=== PATIENT | female | born 2000 | race Caucasian/White ===

== ENCOUNTER 2023-10-30 21:02 | Observation (INO) | payer OTHER ==
[2023-10-30] MEDS ORDERED: Ativan 2 MG/1 ML VIAL IV ONE (21:31)
[2023-10-30 21:39] LABS: Absolute Neutrophil Ct (ANC) 2.65 x10^3/uL (1.4-6.9); BASOPHIL % 0.4 % (0.0-0.4); Basophil (Absolute #) 0.02 x10^3/uL (0-0.4); Eosinophil % 0.7 % (0.00-5.0); Eosinophil (Absolute #) 0.04 x10^3/uL (0-0.5); Hematocrit 43.9 % (35-47); Hemoglobin 14.7 g/dL (12.0-16.0); IMMATURE GRAN # 0.02 x10^3u/L (0.00-0.03); IMMATURE GRAN % 0.4 % (0.00-0.4); Lymphocyte (Absolute #) 2.37 x10^3/uL (1.0-4.6); Lymphocytes % 43.7 % (24.0-44.0); Mean Cell Volume 89.6 fL (78-100); Mean Corpuscular Hgb Concent. 33.5 g/dL (32-36); Monocyte (Absolute #) 0.32 x10^3/uL (0.0-1.3); Monocytes % 5.9 % (0.0-12.0); Neutrophil % 48.9 % (36.0-66.0); Platelet Count 357 x10^3/uL (150-450); Red Cell Distribution Width 12.9 % (11.5-14.0); White Blood Count 5.4 x10^3/uL (4.0-10.5)
[2023-10-30] MEDS ORDERED: Ativan 2 MG/1 ML VIAL ONE (21:45)
[2023-10-30 21:49] LABS: HCG SERUM TEST NEGATIVE (NEGATIVE)
[2023-10-30 21:50] LABS: ACETAMINOPHEN < 10 ug/ml (10-30); ALBUMIN 4.7 g/dL (3.5-5.0); ALKALINE PHOSPHATASE 60 U/L (38-126); ANION GAP 17.4 MEQ/L (5-15); BLOOD UREA NITROGEN 3 mg/dL (7-17); CHLORIDE 109 mmol/L (98-107); Calcium 9.3 mg/dL (8.4-10.2); Carbon Dioxide 23 mmol/L (22-30); Creatinine 1 0.61 mg/dL (0.52-1.04); Glucose 109 mg/dL (74-106); Potassium 3.7 mmol/L (3.5-5.1); SALICYLATE < 1.0 mg/dL (2-20); SGOT/AST 37 U/L (14-36); SGPT/ALT 63 U/L (0-35); SODIUM 146 mmol/L (137-145); Total Protein 8.1 g/dL (6.3-8.2)
[2023-10-30 21:59] LABS: ETHYL ALCOHOL 332 mg/dL (0-10)
[2023-10-30 22:14] LABS: INFLUENZA A NEGATIVE (NEGATIVE); INFLUENZA B NEGATIVE (NEGATIVE); RESPIRATORY SYNCTIAL VIRUS NEGATIVE (NEGATIVE); SARS-CoV-2 Xpert Express NEGATIVE (NEGATIVE)
[2023-10-30] MEDS ORDERED: Nicoderm CQ 21 MG TOP ONE (22:25)
[2023-10-30] MEDS ORDERED: Sodium Chloride 0.9% 1000 ML 1,000 ML IV STA (22:41)
[2023-10-30] MEDS ORDERED: Sodium Chloride 0.9% 1000 ML 1,000 ML ONE (22:43)
--- NOTE | 2023-10-30 23:18 | ERPHSYRPT ---
- History of Present Illness Time Seen by Provider: 10/30/23 21:10 Source: patient Exam Limitations: no limitations Patient Subjective Stated Complaint: pt states "I just want to bleed to and ." Triage Nursing Assessment: pt came into the er via wheelchair; pt is axo; c/o SI; pt is uncooperative, restless; pt has bouts of tearfulness and laughter; multiple superficial lacerations to rt forearm; ETOH; no respiratory distress present; hypertensive; tachycardic Physician History: 23 years old female with history of hypertension, alcohol abuse presented in the ER with chief complaint of suicidal ideations. Patient apparently has been drinking almost every day, had couple of tall beers prior to arrival after she did superficial cuts on the right forearm. Does have history of suicidal ideations in the past and have attempted with heavy drinking and is having the same thoughts now. Denies any other substance use. Denies any homicidal ideations. Patient is awake alert, oriented with no signs of distress with stable vitals. Allergies/Adverse Reactions: No Known Drug Allergies Allergy (Unverified 10/30/23 21:07) Home Medications: Lisinopril 10 mg [Zestril 10 MG] 10 mg PO DAILY 10/30/23 [History] Metoprolol Tartrate 25 mg [Lopressor 25MG Tab] 25 mg PO BID 10/30/23 [History] Naltrexone HCl 50 mg PO DAILY 10/30/23 [History] hydrOXYzine HCL [Hydroxyzine HCl] 10 mg PO BID 10/30/23 [History] Hx Tetanus, Diphtheria Vaccination/Date Given: No (unknown) Hx Influenza Vaccination/Date Given: (unknown) Hx Pneumococcal Vaccination/Date Given: (unknown) Immunizations Up to Date: (unknown) Travel Risk - International Travel Have you traveled outside of the country in past 3 weeks: No - Coronavirus Screening Are you exhibiting any of the following symptoms?: No Close contact with a COVID-19 positive Pt in past 14-21 Days: No - Vaccine Status Have you recieved a Covid-19 vaccination: No - Past Medical History Pertinent Past Medical History: Yes Cardiac History: Hypertension Other Medical History: alcoholism - Past Surgical History Past Surgical History: No - Social History Smoking Status: Smoker, status unknown Exposure to second hand smoke: No Drug Use: marijuana Patient Lives Alone: No - Female History Hx Now: No - Review of Systems Constitutional: No Symptoms Eyes: No Symptoms Ears, Nose, & Throat: No Symptoms Respiratory: No Symptoms Cardiac: No Symptoms Abdominal/Gastrointestinal: No Symptoms Genitourinary Symptoms: No Symptoms Musculoskeletal: No Symptoms Skin: No Symptoms Neurological: No Symptoms Psychological: Alcohol Abuse, Depression Endocrine: No Symptoms Hematologic/Lymphatic: No Symptoms - Nursing Vital Signs Nursing Vital Signs: Initial Vital Signs Temperature 97.9 F 10/30/23 21:03 Pulse Rate 112 H 10/30/23 21:03 Respiratory Rate 24 10/30/23 21:03 Blood Pressure 141/103 10/30/23 21:03 O2 Sat by Pulse Oximetry 97 10/30/23 21:03 Pain Scale Pain Intensity 0 - Physical Exam General Appearance: no apparent distress, alert Eyes, Ears, Nose, Throat Exam: normal ENT inspection Neck Exam: normal inspection, supple, full range of motion Respiratory Exam: normal breath sounds, lungs clear Cardiovascular Exam: normal heart sounds, tachycardia Gastrointestinal/Abdominal Exam: soft, normal bowel sounds, No tenderness Extremities Exam: normal range of motion Neurological Exam: alert, herb doctor II-XII nml as tested, oriented x 3, No normal mood/affect Appearance: No appropriate insight Behavior/Eye Contact/Speech: alert & cooperative Thoughts/Hallucinations: no apparent hallucination, No normal thought pattern Skin Exam: normal color SpO2 Interpretation: normal SpO2: 98 O2 Delivery: Room Air - Course EKG Interpreted by Me: RATE ([id number]), Sinus Rhythm, NORMAL AXIS, NORMAL INTERVALS Ordered Tests: Active Orders 24 hr Category Date Time Status ACETAMINOPHEN Stat Lab 10/30/23 21:20 Completed CBC W DIFF Stat Lab 10/30/23 21:20 Completed CMP Stat Lab 10/30/23 21:20 Completed ETHYL ALCOHOL Stat Lab 10/30/23 21:20 Completed HCG QUALITATIVE, SERUM Stat Lab 10/30/23 21:20 Completed SALICYLATE Stat Lab 10/30/23 21:20 Completed UA W/RFX UR CULTURE Stat Lab 10/30/23 21:11 Ordered Urine Triage Profile Stat Lab 10/30/23 21:11 Ordered Transfer Order Routine Transfer 10/30/23 Ordered Medication Summary Generic Name Dose Route Start Last Admin Trade Name Freq PRN Reason Stop Dose Admin Sodium Chloride 1,000 mls @ 999 mls/hr 10/30/23 22:41 10/30/23 22:45 Sodium Chloride 0.9% 1000 Ml IV 10/30/23 23:41 999 mls/hr .Q1H1M STA Administration Discontinued Medications Generic Name Dose Route Start Last Admin Trade Name Pino PRN Reason Stop Dose Admin Sodium Chloride Confirm 10/30/23 22:43 Sodium Chloride 0.9% 1000 Ml Administered 10/30/23 22:44 Dose 1,000 mls @ ud .ROUTE .STK-MED ONE Lorazepam 1 mg 10/30/23 21:31 10/30/23 21:46 Lorazepam 2 Mg/1 Ml 2 Mg Vial IV 10/30/23 21:32 1 mg STAT ONE Administration Lorazepam Confirm 10/30/23 21:45 Lorazepam 2 Mg/1 Ml 2 Mg Vial Administered 10/30/23 21:46 Dose 2 mg .ROUTE .STK-MED ONE Nicotine 21 mg 10/30/23 22:25 10/30/23 22:30 Nicotine 21 Mg/Patch Patch TOP 10/30/23 22:26 21 mg STAT ONE Administration Lab/Rad Data: Laboratory Result Diagrams 10/30/23 21:20 10/30/23 21:20 Laboratory Results 10/30/23 10/30/23 10/30/23 Range/Units 21:20 21:20 21:20 WBC (4.0-10.5) x10^3/uL RBC (4.1-5.4) x10^6/uL Hgb (12.0-16.0) g/dL Hct (35-47) % MCV (78-100) fL MCH (26-32) pg MCHC (32-36) g/dL RDW (11.5-14.0) % Plt Count (150-450) x10^3/uL MPV (7.5-11.0) fL Gran % (36.0-66.0) % Immature Gran % (Auto) (0.00-0.4) % Nucleat RBC Rel Count (0.00-0.1) % Eos # (Auto) (0-0.5) x10^3/uL Immature Gran # (Auto) (0.00-0.03) x10^3u/L Absolute Lymphs (auto) (1.0-4.6) x10^3/uL Absolute Monos (auto) (0.0-1.3) x10^3/uL Absolute Nucleated RBC (0.00-0.01) x10^3u/L Lymphocytes % (24.0-44.0) % Monocytes % (0.0-12.0) % Eosinophils % (0.00-5.0) % Basophils % (0.0-0.4) % Absolute Granulocytes (1.4-6.9) x10^3/uL Basophils # (0-0.4) x10^3/uL Sodium 146 H (137-145) mmol/L Potassium 3.7 (3.5-5.1) mmol/L Chloride 109 H (98-107) mmol/L Carbon Dioxide 23 (22-30) mmol/L Anion Gap 17.4 H (5-15) MEQ/L BUN 3 L (7-17) mg/dL Creatinine 0.61 (0.52-1.04) mg/dL Estimated GFR 128.0 ML/MIN Glucose 109 H (74-106) mg/dL Calcium 9.3 (8.4-10.2) mg/dL Total Bilirubin 0.70 (0.2-1.3) mg/dL AST 37 H (14-36) U/L ALT 63 H (0-35) U/L Alkaline Phosphatase 60 (38-126) U/L Serum Total Protein 8.1 (6.3-8.2) g/dL Albumin 4.7 (3.5-5.0) g/dL Serum HCG, Qual NEGATIVE (NEGATIVE) Salicylates < 1.0 L (2-20) mg/dL Acetaminophen < 10 L (10-30) ug/ml Ethyl Alcohol 332 H (0-10) mg/dL Influenza Type A Ag NEGATIVE (NEGATIVE) Influenza Type B Ag NEGATIVE (NEGATIVE) RSV (PCR) NEGATIVE (NEGATIVE) SARS-CoV-2 (PCR) NEGATIVE (NEGATIVE) 10/30/23 Range/Units 21:20 WBC 5.4 (4.0-10.5) x10^3/uL RBC 4.90 (4.1-5.4) x10^6/uL Hgb 14.7 (12.0-16.0) g/dL Hct 43.9 (35-47) % MCV 89.6 (78-100) fL MCH 30.0 (26-32) pg MCHC 33.5 (32-36) g/dL RDW 12.9 (11.5-14.0) % Plt Count 357 (150-450) x10^3/uL MPV 9.0 (7.5-11.0) fL Gran % 48.9 (36.0-66.0) % Immature Gran % (Auto) 0.4 (0.00-0.4) % Nucleat RBC Rel Count 0.0 (0.00-0.1) % Eos # (Auto) 0.04 (0-0.5) x10^3/uL Immature Gran # (Auto) 0.02 (0.00-0.03) x10^3u/L Absolute Lymphs (auto) 2.37 (1.0-4.6) x10^3/uL Absolute Monos (auto) 0.32 (0.0-1.3) x10^3/uL Absolute Nucleated RBC 0.00 (0.00-0.01) x10^3u/L Lymphocytes % 43.7 (24.0-44.0) % Monocytes % 5.9 (0.0-12.0) % Eosinophils % 0.7 (0.00-5.0) % Basophils % 0.4 (0.0-0.4) % Absolute Granulocytes 2.65 (1.4-6.9) x10^3/uL Basophils # 0.02 (0-0.4) x10^3/uL Sodium (137-145) mmol/L Potassium (3.5-5.1) mmol/L Chloride (98-107) mmol/L Carbon Dioxide (22-30) mmol/L Anion Gap (5-15) MEQ/L BUN (7-17) mg/dL Creatinine (0.52-1.04) mg/dL Estimated GFR ML/MIN Glucose (74-106) mg/dL Calcium (8.4-10.2) mg/dL Total Bilirubin (0.2-1.3) mg/dL AST (14-36) U/L ALT (0-35) U/L Alkaline Phosphatase (38-126) U/L Serum Total Protein (6.3-8.2) g/dL Albumin (3.5-5.0) g/dL Serum HCG, Qual (NEGATIVE) Salicylates (2-20) mg/dL Acetaminophen (10-30) ug/ml Ethyl Alcohol (0-10) mg/dL Influenza Type A Ag (NEGATIVE) Influenza Type B Ag (NEGATIVE) RSV (PCR) (NEGATIVE) SARS-CoV-2 (PCR) (NEGATIVE) - Progress Progress: unchanged, re-examined Progress Note: 10/30/23 23:24 23 years old female with history of hypertension, alcohol abuse presented in the ER with chief complaint of suicidal ideations. Patient apparently has been drinking almost every day, had couple of tall beers prior to arrival after she did superficial cuts on the right forearm. Does have history of suicidal ideations in the past and have attempted with heavy drinking and is having the same thoughts now. Denies any other substance use. Denies any homicidal ideations. Patient is awake alert, oriented with no signs of distress with stable vitals. She is very anxious, given Ativan for symptomatic relief and started on fluids. Workup showed normal white count, chemistry for Ryles showed mildly elevated sodium of 146 and anion gap of 17. Patient has a blood alcohol of 332. EKG is normal sinus rhythm with no acute ischemic changes. She has a stable vitals. Patient cannot be medically clear for psychiatric evaluation. Discussed with Dr. Lunsford, reviewed history, workup and agreed with admission and once patient is sober enough can have psych eval. Discussed with : Zen Counseled pt/family regarding: lab results, diagnosis, need for follow-up Medical Desision Making - Independent Historian Additional History obtained from: Family - Discussion of managment Care discussed with:: hospitalist Reviewed:: Test results Agreed on:: Treatment plan Will see patient: in hospital - Diagnostic Testing Diagnostic test were ordered, analyzed, and reviewed by me: Yes - Risk of complications The pt has a high risk of morbidity or mortality based on: Decision regarding hospitilization or escalation of hosp level of care - Departure Departure Disposition: Observation Clinical Impression: Alcohol intoxication, Suicidal ideations Condition: Stable Critical Care Time: No Referrals: NAKTIA RIVERO, TK [Primary Care Provider] - Follow up/PCP as directed
[2023-10-31 00:25] LABS: Appearance Clear (Clear); Bacteria None Seen /HPF (None Seen); Bilirubin Negative (Negative); Blood Negative (Negative); Epithelial Cells Rare /HPF (None Seen); Glucose, Urine Negative (Negative); Hyaline Casts NONE SEEN /LPF (0-2); Ketones Negative (Negative); Leukocyte Esterase Negative (Negative); Nitrite Negative (Negative); Ph 7.5 (4.6-8.0); Protein,Urine Dip Negative (Negative); RBC 0-2 /HPF (0-5); Specific Gravity <=1.005 (1.005-1.030); WBC 0-2 /HPF (0-5)
[2023-10-31 00:30] LABS: ADD URINE CULTURE? NO (NO)
[2023-10-31 00:56] LABS: Amphetamine,Urine NEGATIVE (NEGATIVE); Barbiturate,Urine NEGATIVE (NEGATIVE); Benzodiazepine,Urine NEGATIVE (NEGATIVE); Methadone,Urine NEGATIVE (NEGATIVE); Opiate,Urine NEGATIVE (NEGATIVE); PCP,Urine NEGATIVE (NEGATIVE); THC,Urine NEGATIVE (NEGATIVE)
[2023-10-31 01:06] LABS: Cocaine,Urine NEGATIVE (NEGATIVE)
--- NOTE | 2023-10-31 03:18 | PCM.HP ---
History of Present Illness - Chief Complaint Chief Complaint: Alcohol intoxication Date: 10/31/23 History of Present Illness: Ms. Galvez is a 23 year-old female with HTN, EtOH abuse and dependence, and prior suicidal ideations who presents with agitation, EtOH intoxication, and cutting to cause self injury. She has a long standing history of alcohol abuse, and today she started to cut herself on her harms due to having active suicidal ideations. Laboratory data revealed hypernatremia, increased LFTs, and a positive blood alcohol level. On my examination, she is resting comfortably but less agitated, denying any current fevers, chills, nausea, vomiting, diarrhea, syncope, presyncope, visual changes, orthopnea, PND, odynophagia, dysphagia, chest pain, shortness of breath, belly pain, dysuria, hematuria, melena, hematochezia, or neurological changes. All other systems were reviewed and were negative. She still admits to suicidal ideations but denies any homicidal ideations - Review of Systems Constitutional: No Fever, No Chills Eyes: No Symptoms Ears, Nose, & Throat: No Symptoms Respiratory: No Cough, No Short Of Breath Cardiac: No Chest Pain, No Edema, No Syncope Abdominal/Gastrointestinal: No Abdominal Pain, No Nausea, No Vomiting, No Diarrhea Genitourinary Symptoms: No Dysuria Musculoskeletal: No Back Pain, No Neck Pain Skin: No Rash Neurological: No Dizziness, No Focal Weakness, No Sensory Changes Psychological: Alcohol Abuse, Suicidal Ideations Endocrine: No Symptoms Hematologic/Lymphatic: No Symptoms Immunological/Allergic: No Symptoms Medications & Allergies Home Medications: Home Medication List Lisinopril 10 mg [Zestril 10 MG] 10 mg PO DAILY 10/30/23 [History Confirmed 10/30/23] Metoprolol Tartrate 25 mg [Lopressor 25MG Tab] 25 mg PO BID 10/30/23 [History Confirmed 10/30/23] Naltrexone HCl 50 mg PO DAILY 10/30/23 [History Confirmed 10/30/23] hydrOXYzine HCL [Hydroxyzine HCl] 10 mg PO BID PRN 10/30/23 [History Confirmed 10/30/23] Allergies/Adverse Reactions: Allergies Allergy/AdvReac Type Severity Reaction Status Date / Time No Known Drug Allergies Allergy Verified 10/30/23 23:46 - Past Medical History Past Medical History: Yes Neurological History: No Pertinent History ENT History: No Pertinent History Cardiac History: Hypertension Respiratory History: No Pertinent History Endocrine Medical History: No Pertinent History Musculoskelatal History: No Pertinent History GI Medical History: No Pertinent History History: No Pertinent History Pyscho-Social History: Anxiety, Depression, Other Reproductive Disorders: No Pertinent History Comment: alcoholism - Female History Hx Last Menstrual Period: 10/13/23 Are you now?: No - Past Surgical History Past Surgical History: No - Social History Smoking Status: Former smoker How long have you smoked: 4 years Exposure to second hand smoke: No Alcohol: Heavy, Daily Drug Use: marijuana - Physical Exam Vital Signs: Vital Signs - 24 hr Temp Pulse Resp BP BP Pulse Ox 10/31/23 01:36 85 19 144/85 10/31/23 00:35 99 10/31/23 00:09 97.9 F 82 16 114/78 98 10/31/23 00:00 87 19 144/85 10/30/23 23:35 98 10/30/23 23:03 82 114/78 98 10/30/23 23:00 84 14 114/78 98 10/30/23 22:46 76 14 80/48 97 10/30/23 22:39 89 80/48 98 10/30/23 22:38 96 10/30/23 22:37 97 10/30/23 21:03 97.9 F 112 H 24 141/103 97 General Appearance: no apparent distress, alert Neurologic Exam: alert, oriented x 3, cooperative, normal mood/affect, nml cerebellar function, nml station & gait, sensation nml, No motor deficits Eye Exam: PERRL/EOMI, eyes nml inspection Ears, Nose, Throat Exam: normal ENT inspection, TMs normal, pharynx normal, moist mucous membranes Neck Exam: normal inspection, non-tender, supple, full range of motion Respiratory Exam: normal breath sounds, lungs clear, No respiratory distress Cardiovascular Exam: regular rate/rhythm, normal heart sounds, normal peripheral pulses Gastrointestinal/Abdomen Exam: soft, normal bowel sounds, No tenderness, No mass Back Exam: normal inspection, normal range of motion, No CVA tenderness, No vertebral tenderness Extremity Exam: other (CUTS ON FOREARMS) Skin Exam: normal color, warm, dry, No rash Lymphatic Exam: No adenopathy Results - Labs Lab/Micro Results: Lab Results-Last 24 Hours 10/30/23 10/30/23 10/30/23 Range/Units 21:20 21:20 21:20 WBC 5.4 (4.0-10.5) x10^3/uL RBC 4.90 (4.1-5.4) x10^6/uL Hgb 14.7 (12.0-16.0) g/dL Hct 43.9 (35-47) % MCV 89.6 (78-100) fL MCH 30.0 (26-32) pg MCHC 33.5 (32-36) g/dL RDW 12.9 (11.5-14.0) % Plt Count 357 (150-450) x10^3/uL MPV 9.0 (7.5-11.0) fL Gran % 48.9 (36.0-66.0) % Immature Gran % (Auto) 0.4 (0.00-0.4) % Nucleat RBC Rel Count 0.0 (0.00-0.1) % Eos # (Auto) 0.04 (0-0.5) x10^3/uL Immature Gran # (Auto) 0.02 (0.00-0.03) x10^3u/L Absolute Lymphs (auto) 2.37 (1.0-4.6) x10^3/uL Absolute Monos (auto) 0.32 (0.0-1.3) x10^3/uL Absolute Nucleated RBC 0.00 (0.00-0.01) x10^3u/L Lymphocytes % 43.7 (24.0-44.0) % Monocytes % 5.9 (0.0-12.0) % Eosinophils % 0.7 (0.00-5.0) % Basophils % 0.4 (0.0-0.4) % Absolute Granulocytes 2.65 (1.4-6.9) x10^3/uL Basophils # 0.02 (0-0.4) x10^3/uL Sodium 146 H (137-145) mmol/L Potassium 3.7 (3.5-5.1) mmol/L Chloride 109 H (98-107) mmol/L Carbon Dioxide 23 (22-30) mmol/L Anion Gap 17.4 H (5-15) MEQ/L BUN 3 L (7-17) mg/dL Creatinine 0.61 (0.52-1.04) mg/dL Estimated GFR 128.0 ML/MIN Glucose 109 H (74-106) mg/dL Calcium 9.3 (8.4-10.2) mg/dL Total Bilirubin 0.70 (0.2-1.3) mg/dL AST 37 H (14-36) U/L ALT 63 H (0-35) U/L Alkaline Phosphatase 60 (38-126) U/L Serum Total Protein 8.1 (6.3-8.2) g/dL Albumin 4.7 (3.5-5.0) g/dL Serum HCG, Qual NEGATIVE (NEGATIVE) Urine Color (Yellow) Urine Appearance (Clear) Urine pH (4.6-8.0) Ur Specific [place] (1.005-1.030) Urine Protein (Negative) Urine Glucose (UA) (Negative) mg/dL Urine Ketones (Negative) Urine Blood (Negative) Urine Nitrite (Negative) Urine Bilirubin (Negative) Urine Urobilinogen (0.2) mg/dL Ur Leukocyte Esterase (Negative) U Hyaline Cast (Auto) (0-2) /LPF Urine Microscopic RBC (0-5) /HPF Urine Microscopic WBC (0-5) /HPF Ur Epithelial Cells (None Seen) /HPF Urine Bacteria (None Seen) /HPF Urine Culture Reflexed (NO) Salicylates < 1.0 L (2-20) mg/dL Urine Opiates Level (NEGATIVE) Ur Methadone (NEGATIVE) Acetaminophen < 10 L (10-30) ug/ml Urine Barbiturates (NEGATIVE) Ur Phencyclidine (PCP) (NEGATIVE) Urine Amphetamine (NEGATIVE) U Benzodiazepine Level (NEGATIVE) Urine Cocaine (NEGATIVE) Urine Marijuana (THC) (NEGATIVE) Ethyl Alcohol 332 H (0-10) mg/dL Influenza Type A Ag (NEGATIVE) Influenza Type B Ag (NEGATIVE) RSV (PCR) (NEGATIVE) SARS-CoV-2 (PCR) (NEGATIVE) 10/30/23 10/31/23 10/31/23 Range/Units 21:20 00:01 00:01 WBC (4.0-10.5) x10^3/uL RBC (4.1-5.4) x10^6/uL Hgb (12.0-16.0) g/dL Hct (35-47) % MCV (78-100) fL MCH (26-32) pg MCHC (32-36) g/dL RDW (11.5-14.0) % Plt Count (150-450) x10^3/uL MPV (7.5-11.0) fL Gran % (36.0-66.0) % Immature Gran % (Auto) (0.00-0.4) % Nucleat RBC Rel Count (0.00-0.1) % Eos # (Auto) (0-0.5) x10^3/uL Immature Gran # (Auto) (0.00-0.03) x10^3u/L Absolute Lymphs (auto) (1.0-4.6) x10^3/uL Absolute Monos (auto) (0.0-1.3) x10^3/uL Absolute Nucleated RBC (0.00-0.01) x10^3u/L Lymphocytes % (24.0-44.0) % Monocytes % (0.0-12.0) % Eosinophils % (0.00-5.0) % Basophils % (0.0-0.4) % Absolute Granulocytes (1.4-6.9) x10^3/uL Basophils # (0-0.4) x10^3/uL Sodium (137-145) mmol/L Potassium (3.5-5.1) mmol/L Chloride (98-107) mmol/L Carbon Dioxide (22-30) mmol/L Anion Gap (5-15) MEQ/L BUN (7-17) mg/dL Creatinine (0.52-1.04) mg/dL Estimated GFR ML/MIN Glucose (74-106) mg/dL Calcium (8.4-10.2) mg/dL Total Bilirubin (0.2-1.3) mg/dL AST (14-36) U/L ALT (0-35) U/L Alkaline Phosphatase (38-126) U/L Serum Total Protein (6.3-8.2) g/dL Albumin (3.5-5.0) g/dL Serum HCG, Qual (NEGATIVE) Urine Color Yellow (Yellow) Urine Appearance Clear (Clear) Urine pH 7.5 (4.6-8.0) Ur Specific [place] <=1.005 (1.005-1.030) Urine Protein Negative (Negative) Urine Glucose (UA) Negative (Negative) mg/dL Urine Ketones Negative (Negative) Urine Blood Negative (Negative) Urine Nitrite Negative (Negative) Urine Bilirubin Negative (Negative) Urine Urobilinogen 1.0 A (0.2) mg/dL Ur Leukocyte Esterase Negative (Negative) U Hyaline Cast (Auto) NONE SEEN (0-2) /LPF Urine Microscopic RBC 0-2 (0-5) /HPF Urine Microscopic WBC 0-2 (0-5) /HPF Ur Epithelial Cells Rare (None Seen) /HPF Urine Bacteria None Seen (None Seen) /HPF Urine Culture Reflexed NO (NO) Salicylates (2-20) mg/dL Urine Opiates Level NEGATIVE (NEGATIVE) Ur Methadone NEGATIVE (NEGATIVE) Acetaminophen (10-30) ug/ml Urine Barbiturates NEGATIVE (NEGATIVE) Ur Phencyclidine (PCP) NEGATIVE (NEGATIVE) Urine Amphetamine NEGATIVE (NEGATIVE) U Benzodiazepine Level NEGATIVE (NEGATIVE) Urine Cocaine NEGATIVE (NEGATIVE) Urine Marijuana (THC) NEGATIVE (NEGATIVE) Ethyl Alcohol (0-10) mg/dL Influenza Type A Ag NEGATIVE (NEGATIVE) Influenza Type B Ag NEGATIVE (NEGATIVE) RSV (PCR) NEGATIVE (NEGATIVE) SARS-CoV-2 (PCR) NEGATIVE (NEGATIVE) Assessment/Plan (1) Suicidal ideations Current Visit: Yes Status: Acute Assessment & Plan: ASSESSMENT 1. Altered Mental Status and Agitation 2. Suicidal Ideations 3. Alcohol Intoxication 4. Transaminitis 5. Hypernatremia PLAN 1. Less agitated and cooperative 2. Gentle fluids 3. Mental health 4. Monitor LFTs- most likely from EtOH SCDs The entirety of this encounter was done via telemedicine Douglas Lunsford MD Pulmonary and Critical Care Medicine Code(s): R45.851 - SUICIDAL IDEATIONS Telemedicine Encounter - Telemedicine Encounter Telemedicine Encounter: The entirety of this encounter was performed via Telemedicine"
[2023-10-31] MEDS: Lactated Ringers 1,000 ML IV SCH ×2 (03:40→15:19)
[2023-10-31 04:59] LABS: Absolute Neutrophil Ct (ANC) 2.06 x10^3/uL (1.4-6.9); BASOPHIL % 0.5 % (0.0-0.4); Basophil (Absolute #) 0.02 x10^3/uL (0-0.4); Eosinophil % 0.9 % (0.00-5.0); Eosinophil (Absolute #) 0.04 x10^3/uL (0-0.5); Hematocrit 39.1 % (35-47); Hemoglobin 13.1 g/dL (12.0-16.0); IMMATURE GRAN # 0.02 x10^3u/L (0.00-0.03); IMMATURE GRAN % 0.5 % (0.00-0.4); Lymphocyte (Absolute #) 1.92 x10^3/uL (1.0-4.6); Lymphocytes % 44.4 % (24.0-44.0); Mean Cell Volume 89.9 fL (78-100); Mean Corpuscular Hemoglobin 30.1 pg (26-32); Mean Corpuscular Hgb Concent. 33.5 g/dL (32-36); Mean Platelet Volume 9.1 fL (7.5-11.0); Monocyte (Absolute #) 0.26 x10^3/uL (0.0-1.3); Neutrophil % 47.7 % (36.0-66.0); Platelet Count 316 x10^3/uL (150-450); Red Blood Count 4.35 x10^6/uL (4.1-5.4); Red Cell Distribution Width 12.8 % (11.5-14.0); White Blood Count 4.3 x10^3/uL (4.0-10.5)
[2023-10-31 05:26] LABS: ALBUMIN 4.1 g/dL (3.5-5.0); ALKALINE PHOSPHATASE 47 U/L (38-126); ANION GAP 15.6 MEQ/L (5-15); BLOOD UREA NITROGEN < 2 mg/dL (7-17); CHLORIDE 106 mmol/L (98-107); Calcium 8.5 mg/dL (8.4-10.2); Carbon Dioxide 21 mmol/L (22-30); EST GLOMERULAR FILTRATION RATE 134.2 ML/MIN; Glucose 90 mg/dL (74-106); Potassium 3.7 mmol/L (3.5-5.1); SGOT/AST 30 U/L (14-36); SGPT/ALT 53 U/L (0-35); SODIUM 138 mmol/L (137-145)
[2023-10-31] MEDS ORDERED: VALIUM 10 MG/2 ML SYRINGE IV PRN (08:05)
[2023-10-31] MEDS ORDERED: PHENERGAN 25 MG PO PRN (08:05)
[2023-10-31] MEDS ORDERED: Zestril 10 MG PO SCH (10:00)
[2023-10-31] MEDS ORDERED: Nicoderm CQ 21 MG TOP SCH (10:00)
[2023-10-31] MEDS ORDERED: VITAMIN B-1 100 MG PO SCH (10:00)
[2023-10-31] MEDS ORDERED: Lopressor 25MG Tab PO SCH (10:00)
[2023-10-31] MEDS ORDERED: FOLATE 1 MG PO SCH (10:00)
[2023-10-31] MEDS ORDERED: THERAGRAN MULTIVITAMIN PO SCH (10:00)
[2023-10-31 12:33] VITALS: RESP 17; TEMP 97.6; O2SAT 97
--- NOTE | 2023-10-31 16:59 | PCM.DS ---
Discharge Summary Date of Admission: 10/30/23 23:36 Date of Discharge: 10/31/23 Admitting Physician: TERRY ANGLIN MD Consults: Consults on Case 10/31/23 08:08 Consult,Huma [Psychiatric Consult] STAT Primary Care Provider: NAKITA RIVERO Allergies Allergies No Known Drug Allergies Allergy (Verified 10/30/23 23:46) Hospital Summary - Hospital Course Hospital Course: Ms. Galvez is a 23 year-old female with HTN, EtOH abuse and dependence, and prior suicidal ideations who presents with agitation, EtOH intoxication, and cutting to cause self injury. She has a long standing history of alcohol abuse, and today she started to cut herself on her harms due to having active suicidal ideations. Laboratory data revealed hypernatremia, increased LFTs, and a positive blood alcohol level. On my examination, she is resting comfortably but less agitated, denying any current fevers, chills, nausea, vomiting, diarrhea, syncope, presyncope, visual changes, orthopnea, PND, odynophagia, dysphagia, chest pain, shortness of breath, belly pain, dysuria, hematuria, melena, hematochezia, or neurological changes. All other systems were reviewed and were negative. She still admits to suicidal ideations but denies any homicidal ideations. Alcohol level is now within normal limits. She is stable and ready for tx for IP psych. She is ready and willing to go. - Vitals & Intake/Output Vital Signs: Vital Signs Temperature 97.6 F 10/31/23 12:16 Pulse Rate 63 10/31/23 12:20 Respiratory Rate 17 10/31/23 12:20 Blood Pressure 147/93 10/31/23 12:20 O2 Sat by Pulse Oximetry 97 10/31/23 12:16 Intake & Output: Intake & Output 10/29/23 10/30/23 10/31/23 11/01/23 11:59 11:59 11:59 11:59 Intake Total 200 Output Total 400 Balance -200 Weight 70.7 kg - Lab Result Diagrams: 10/31/23 04:24 10/31/23 04:24 Lab Results-Last 24 Hrs: Lab Results-Last 24 Hours 10/30/23 10/30/23 10/30/23 Range/Units 21:20 21:20 21:20 WBC 5.4 (4.0-10.5) x10^3/uL RBC 4.90 (4.1-5.4) x10^6/uL Hgb 14.7 (12.0-16.0) g/dL Hct 43.9 (35-47) % MCV 89.6 (78-100) fL MCH 30.0 (26-32) pg MCHC 33.5 (32-36) g/dL RDW 12.9 (11.5-14.0) % Plt Count 357 (150-450) x10^3/uL MPV 9.0 (7.5-11.0) fL Gran % 48.9 (36.0-66.0) % Immature Gran % (Auto) 0.4 (0.00-0.4) % Nucleat RBC Rel Count 0.0 (0.00-0.1) % Eos # (Auto) 0.04 (0-0.5) x10^3/uL Immature Gran # (Auto) 0.02 (0.00-0.03) x10^3u/L Absolute Lymphs (auto) 2.37 (1.0-4.6) x10^3/uL Absolute Monos (auto) 0.32 (0.0-1.3) x10^3/uL Absolute Nucleated RBC 0.00 (0.00-0.01) x10^3u/L Lymphocytes % 43.7 (24.0-44.0) % Monocytes % 5.9 (0.0-12.0) % Eosinophils % 0.7 (0.00-5.0) % Basophils % 0.4 (0.0-0.4) % Absolute Granulocytes 2.65 (1.4-6.9) x10^3/uL Basophils # 0.02 (0-0.4) x10^3/uL Sodium 146 H (137-145) mmol/L Potassium 3.7 (3.5-5.1) mmol/L Chloride 109 H (98-107) mmol/L Carbon Dioxide 23 (22-30) mmol/L Anion Gap 17.4 H (5-15) MEQ/L BUN 3 L (7-17) mg/dL Creatinine 0.61 (0.52-1.04) mg/dL Estimated GFR 128.0 ML/MIN Glucose 109 H (74-106) mg/dL Calcium 9.3 (8.4-10.2) mg/dL Magnesium (1.6-2.3) mg/dL Total Bilirubin 0.70 (0.2-1.3) mg/dL AST 37 H (14-36) U/L ALT 63 H (0-35) U/L Alkaline Phosphatase 60 (38-126) U/L Serum Total Protein 8.1 (6.3-8.2) g/dL Albumin 4.7 (3.5-5.0) g/dL Serum HCG, Qual NEGATIVE (NEGATIVE) Urine Color (Yellow) Urine Appearance (Clear) Urine pH (4.6-8.0) Ur Specific [place] (1.005-1.030) Urine Protein (Negative) Urine Glucose (UA) (Negative) mg/dL Urine Ketones (Negative) Urine Blood (Negative) Urine Nitrite (Negative) Urine Bilirubin (Negative) Urine Urobilinogen (0.2) mg/dL Ur Leukocyte Esterase (Negative) U Hyaline Cast (Auto) (0-2) /LPF Urine Microscopic RBC (0-5) /HPF Urine Microscopic WBC (0-5) /HPF Ur Epithelial Cells (None Seen) /HPF Urine Bacteria (None Seen) /HPF Urine Culture Reflexed (NO) Salicylates < 1.0 L (2-20) mg/dL Urine Opiates Level (NEGATIVE) Ur Methadone (NEGATIVE) Acetaminophen < 10 L (10-30) ug/ml Urine Barbiturates (NEGATIVE) Ur Phencyclidine (PCP) (NEGATIVE) Urine Amphetamine (NEGATIVE) U Benzodiazepine Level (NEGATIVE) Urine Cocaine (NEGATIVE) Urine Marijuana (THC) (NEGATIVE) Ethyl Alcohol 332 H (0-10) mg/dL Influenza Type A Ag (NEGATIVE) Influenza Type B Ag (NEGATIVE) RSV (PCR) (NEGATIVE) SARS-CoV-2 (PCR) (NEGATIVE) 10/30/23 10/31/23 10/31/23 Range/Units 21:20 00:01 00:01 WBC (4.0-10.5) x10^3/uL RBC (4.1-5.4) x10^6/uL Hgb (12.0-16.0) g/dL Hct (35-47) % MCV (78-100) fL MCH (26-32) pg MCHC (32-36) g/dL RDW (11.5-14.0) % Plt Count (150-450) x10^3/uL MPV (7.5-11.0) fL Gran % (36.0-66.0) % Immature Gran % (Auto) (0.00-0.4) % Nucleat RBC Rel Count (0.00-0.1) % Eos # (Auto) (0-0.5) x10^3/uL Immature Gran # (Auto) (0.00-0.03) x10^3u/L Absolute Lymphs (auto) (1.0-4.6) x10^3/uL Absolute Monos (auto) (0.0-1.3) x10^3/uL Absolute Nucleated RBC (0.00-0.01) x10^3u/L Lymphocytes % (24.0-44.0) % Monocytes % (0.0-12.0) % Eosinophils % (0.00-5.0) % Basophils % (0.0-0.4) % Absolute Granulocytes (1.4-6.9) x10^3/uL Basophils # (0-0.4) x10^3/uL Sodium (137-145) mmol/L Potassium (3.5-5.1) mmol/L Chloride (98-107) mmol/L Carbon Dioxide (22-30) mmol/L Anion Gap (5-15) MEQ/L BUN (7-17) mg/dL Creatinine (0.52-1.04) mg/dL Estimated GFR ML/MIN Glucose (74-106) mg/dL Calcium (8.4-10.2) mg/dL Magnesium (1.6-2.3) mg/dL Total Bilirubin (0.2-1.3) mg/dL AST (14-36) U/L ALT (0-35) U/L Alkaline Phosphatase (38-126) U/L Serum Total Protein (6.3-8.2) g/dL Albumin (3.5-5.0) g/dL Serum HCG, Qual (NEGATIVE) Urine Color Yellow (Yellow) Urine Appearance Clear (Clear) Urine pH 7.5 (4.6-8.0) Ur Specific [place] <=1.005 (1.005-1.030) Urine Protein Negative (Negative) Urine Glucose (UA) Negative (Negative) mg/dL Urine Ketones Negative (Negative) Urine Blood Negative (Negative) Urine Nitrite Negative (Negative) Urine Bilirubin Negative (Negative) Urine Urobilinogen 1.0 A (0.2) mg/dL Ur Leukocyte Esterase Negative (Negative) U Hyaline Cast (Auto) NONE SEEN (0-2) /LPF Urine Microscopic RBC 0-2 (0-5) /HPF Urine Microscopic WBC 0-2 (0-5) /HPF Ur Epithelial Cells Rare (None Seen) /HPF Urine Bacteria None Seen (None Seen) /HPF Urine Culture Reflexed NO (NO) Salicylates (2-20) mg/dL Urine Opiates Level NEGATIVE (NEGATIVE) Ur Methadone NEGATIVE (NEGATIVE) Acetaminophen (10-30) ug/ml Urine Barbiturates NEGATIVE (NEGATIVE) Ur Phencyclidine (PCP) NEGATIVE (NEGATIVE) Urine Amphetamine NEGATIVE (NEGATIVE) U Benzodiazepine Level NEGATIVE (NEGATIVE) Urine Cocaine NEGATIVE (NEGATIVE) Urine Marijuana (THC) NEGATIVE (NEGATIVE) Ethyl Alcohol (0-10) mg/dL Influenza Type A Ag NEGATIVE (NEGATIVE) Influenza Type B Ag NEGATIVE (NEGATIVE) RSV (PCR) NEGATIVE (NEGATIVE) SARS-CoV-2 (PCR) NEGATIVE (NEGATIVE) 10/31/23 10/31/23 10/31/23 Range/Units 04:05 04:24 04:24 WBC 4.3 (4.0-10.5) x10^3/uL RBC 4.35 (4.1-5.4) x10^6/uL Hgb 13.1 (12.0-16.0) g/dL Hct 39.1 (35-47) % MCV 89.9 (78-100) fL MCH 30.1 (26-32) pg MCHC 33.5 (32-36) g/dL RDW 12.8 (11.5-14.0) % Plt Count 316 (150-450) x10^3/uL MPV 9.1 (7.5-11.0) fL Gran % 47.7 (36.0-66.0) % Immature Gran % (Auto) 0.5 H (0.00-0.4) % Nucleat RBC Rel Count 0.0 (0.00-0.1) % Eos # (Auto) 0.04 (0-0.5) x10^3/uL Immature Gran # (Auto) 0.02 (0.00-0.03) x10^3u/L Absolute Lymphs (auto) 1.92 (1.0-4.6) x10^3/uL Absolute Monos (auto) 0.26 (0.0-1.3) x10^3/uL Absolute Nucleated RBC 0.00 (0.00-0.01) x10^3u/L Lymphocytes % 44.4 H (24.0-44.0) % Monocytes % 6.0 (0.0-12.0) % Eosinophils % 0.9 (0.00-5.0) % Basophils % 0.5 (0.0-0.4) % Absolute Granulocytes 2.06 (1.4-6.9) x10^3/uL Basophils # 0.02 (0-0.4) x10^3/uL Sodium 138 D (137-145) mmol/L Potassium 3.7 (3.5-5.1) mmol/L Chloride 106 (98-107) mmol/L Carbon Dioxide 21 L (22-30) mmol/L Anion Gap 15.6 H (5-15) MEQ/L BUN < 2 L (7-17) mg/dL Creatinine 0.50 L (0.52-1.04) mg/dL Estimated GFR 134.2 ML/MIN Glucose 90 (74-106) mg/dL Calcium 8.5 (8.4-10.2) mg/dL Magnesium (1.6-2.3) mg/dL Total Bilirubin 0.60 (0.2-1.3) mg/dL AST 30 (14-36) U/L ALT 53 H (0-35) U/L Alkaline Phosphatase 47 (38-126) U/L Serum Total Protein 7.0 (6.3-8.2) g/dL Albumin 4.1 (3.5-5.0) g/dL Serum HCG, Qual (NEGATIVE) Urine Color (Yellow) Urine Appearance (Clear) Urine pH (4.6-8.0) Ur Specific [place] (1.005-1.030) Urine Protein (Negative) Urine Glucose (UA) (Negative) mg/dL Urine Ketones (Negative) Urine Blood (Negative) Urine Nitrite (Negative) Urine Bilirubin (Negative) Urine Urobilinogen (0.2) mg/dL Ur Leukocyte Esterase (Negative) U Hyaline Cast (Auto) (0-2) /LPF Urine Microscopic RBC (0-5) /HPF Urine Microscopic WBC (0-5) /HPF Ur Epithelial Cells (None Seen) /HPF Urine Bacteria (None Seen) /HPF Urine Culture Reflexed (NO) Salicylates (2-20) mg/dL Urine Opiates Level (NEGATIVE) Ur Methadone (NEGATIVE) Acetaminophen (10-30) ug/ml Urine Barbiturates (NEGATIVE) Ur Phencyclidine (PCP) (NEGATIVE) Urine Amphetamine (NEGATIVE) U Benzodiazepine Level (NEGATIVE) Urine Cocaine (NEGATIVE) Urine Marijuana (THC) (NEGATIVE) Ethyl Alcohol 162 H (0-10) mg/dL Influenza Type A Ag (NEGATIVE) Influenza Type B Ag (NEGATIVE) RSV (PCR) (NEGATIVE) SARS-CoV-2 (PCR) (NEGATIVE) 10/31/23 10/31/23 Range/Units 04:24 14:15 WBC (4.0-10.5) x10^3/uL RBC (4.1-5.4) x10^6/uL Hgb (12.0-16.0) g/dL Hct (35-47) % MCV (78-100) fL MCH (26-32) pg MCHC (32-36) g/dL RDW (11.5-14.0) % Plt Count (150-450) x10^3/uL MPV (7.5-11.0) fL Gran % (36.0-66.0) % Immature Gran % (Auto) (0.00-0.4) % Nucleat RBC Rel Count (0.00-0.1) % Eos # (Auto) (0-0.5) x10^3/uL Immature Gran # (Auto) (0.00-0.03) x10^3u/L Absolute Lymphs (auto) (1.0-4.6) x10^3/uL Absolute Monos (auto) (0.0-1.3) x10^3/uL Absolute Nucleated RBC (0.00-0.01) x10^3u/L Lymphocytes % (24.0-44.0) % Monocytes % (0.0-12.0) % Eosinophils % (0.00-5.0) % Basophils % (0.0-0.4) % Absolute Granulocytes (1.4-6.9) x10^3/uL Basophils # (0-0.4) x10^3/uL Sodium (137-145) mmol/L Potassium (3.5-5.1) mmol/L Chloride (98-107) mmol/L Carbon Dioxide (22-30) mmol/L Anion Gap (5-15) MEQ/L BUN (7-17) mg/dL Creatinine (0.52-1.04) mg/dL Estimated GFR ML/MIN Glucose (74-106) mg/dL Calcium (8.4-10.2) mg/dL Magnesium 2.1 (1.6-2.3) mg/dL Total Bilirubin (0.2-1.3) mg/dL AST (14-36) U/L ALT (0-35) U/L Alkaline Phosphatase (38-126) U/L Serum Total Protein (6.3-8.2) g/dL Albumin (3.5-5.0) g/dL Serum HCG, Qual (NEGATIVE) Urine Color (Yellow) Urine Appearance (Clear) Urine pH (4.6-8.0) Ur Specific [place] (1.005-1.030) Urine Protein (Negative) Urine Glucose (UA) (Negative) mg/dL Urine Ketones (Negative) Urine Blood (Negative) Urine Nitrite (Negative) Urine Bilirubin (Negative) Urine Urobilinogen (0.2) mg/dL Ur Leukocyte Esterase (Negative) U Hyaline Cast (Auto) (0-2) /LPF Urine Microscopic RBC (0-5) /HPF Urine Microscopic WBC (0-5) /HPF Ur Epithelial Cells (None Seen) /HPF Urine Bacteria (None Seen) /HPF Urine Culture Reflexed (NO) Salicylates (2-20) mg/dL Urine Opiates Level (NEGATIVE) Ur Methadone (NEGATIVE) Acetaminophen (10-30) ug/ml Urine Barbiturates (NEGATIVE) Ur Phencyclidine (PCP) (NEGATIVE) Urine Amphetamine (NEGATIVE) U Benzodiazepine Level (NEGATIVE) Urine Cocaine (NEGATIVE) Urine Marijuana (THC) (NEGATIVE) Ethyl Alcohol < 10 (0-10) mg/dL Influenza Type A Ag (NEGATIVE) Influenza Type B Ag (NEGATIVE) RSV (PCR) (NEGATIVE) SARS-CoV-2 (PCR) (NEGATIVE) - Procedures and Test Procedures and Tests throughout Hospitalization: Therapy Orders & Screens 10/31/23 11:35 EKG STAT Comment: Diagnosis: Alcohol intoxication Discharge Exam General Appearance: no apparent distress, alert Neurologic Exam: alert, oriented x 3, cooperative, normal mood/affect, nml cerebellar function, sensation nml, No motor deficits Eye Exam: PERRL, EOMI, eyes nml inspection Ears, Nose, Throat Exam: normal ENT inspection, pharynx normal, moist mucous membranes Neck Exam: normal inspection, non-tender, supple, full range of motion Respiratory Exam: normal breath sounds, lungs clear, No respiratory distress Cardiovascular Exam: regular rate/rhythm, normal heart sounds Gastrointestinal/Abdomen Exam: soft, No tenderness, No mass Pelvic Exam: deferred Rectal Exam: deferred Back Exam: normal inspection, normal range of motion, No CVA tenderness, No vertebral tenderness Extremity Exam: normal inspection, normal range of motion Skin Exam: normal color, warm, dry, other (Superficial cuts to R lower arm) Final Diagnosis/Problem List - Final Discharge Diagnosis/Problem (1) Alcohol intoxication Current Visit: Yes Status: Acute Assessment & Plan: - Alcohol withdrawl protocol - contributing to suicidal ideation and self harm (2) Chronic alcohol abuse Current Visit: Yes Status: Acute Assessment & Plan: - Drinks 2 tall cans of beer 16 oz daily and and about 750 ml of Fireball daily - alcohol level WNL at 1605 Code(s): F10.10 - ALCOHOL ABUSE, UNCOMPLICATED (3) Suicidal ideations Current Visit: Yes Status: Acute Assessment & Plan: - Psych consult - bed next to nurses station -monitoring with camera Code(s): R45.851 - SUICIDAL IDEATIONS (4) Self-harming behavior Current Visit: Yes Status: Acute Assessment & Plan: - superficial cutting of right lower arm - no S/S of infection Code(s): SGS7438 - (5) Smoker Current Visit: Yes Status: Acute Assessment & Plan: - advised cessation - nicotine patch Code(s): F17.200 - NICOTINE DEPENDENCE, UNSPECIFIED, UNCOMPLICATED (6) HTN (hypertension) Current Visit: Yes Status: Acute Code(s): I10 - ESSENTIAL (PRIMARY) HYPERTENSION (7) HTN (hypertension) Current Visit: Yes Status: Acute Assessment & Plan: - chronic- stable - continue home meds - tele Code(s): I10 - ESSENTIAL (PRIMARY) HYPERTENSION - Discharge Discharge Date: 10/31/23 Disposition: [facility] Condition: Stable Prescriptions: Continue hydrOXYzine HCL [Hydroxyzine HCl] 10 mg PO BID PRN Lisinopril 10 mg [Zestril 10 MG] 10 mg PO DAILY Metoprolol Tartrate 25 mg [Lopressor 25MG Tab] 25 mg PO BID Naltrexone HCl 50 mg PO DAILY Follow up with: NAKITA RIVERO NP [Primary Care Provider] -
[2023-10-31 17:06] VITALS: BP 148/93; PULSE 76
== END 2023-10-31 17:08 ==
LOC: ED 21:02 → ICU 23:36
PROVIDERS: ADMIT Internal Medicine Critical Care Medicine; ATTEND Internal Medicine Critical Care Medicine
DX: F10.10 Alcohol abuse, uncomplicated (principal); R45.851 Suicidal ideations; I10 Essential (primary) hypertension; F41.9 Anxiety disorder, unspecified; E87.0 Hyperosmolality and hypernatremia; F17.200 Nicotine dependence, unspecified, uncomplicated; Z79.899 Other long term (current) drug therapy; Z20.828 Contact with and (suspected) exposure to other viral communicable diseases
CPT/HCPCS: 0241U; 36000; 36415; 80053; 80143; 80179; 80307; 81001; 82077; 83735; 84703; 85025; 93005; 99285; 93268; J2060; J3360; A9270-GY; G0378